=== PATIENT | male | born 1995 | race Two or more races ===

== ENCOUNTER 2017-06-29 18:28 | Inpatient (IN) | payer OTHER ==
[~2017-06-29] VITALS: Ht 167.6 cm; Wt 110.5 kg
[2017-06-29] VITALS (7 sets, daily range): BP systolic 143–176; BP diastolic 94–106; PULSE 81–104; RESP 18–20; TEMP 97.5–98.3; O2SAT 96–98
[2017-06-29] MEDS ORDERED: MELO7.5T4 PO (19:08)
[2017-06-29] MEDS ORDERED: SODIUM CHLOR 0.9% 1000 ML INJ 1,000 ML IV ONE (19:27)
--- NOTE | 2017-06-29 19:30 | PD ---
HPI Chief Complaint: General Weakness Time Seen by Provider: 19:27 Travel History International Travel<30 days: No Contact w/Intl Traveler<30days: No Traveled to known affect area: No History of Present Illness HPI 21-year-old male presents to the emergency department by private transportation the care of family for evaluation of soreness and pain with range of motion of the right upper extremity developing to the left upper extremity concerning for symptoms in the past that he has experienced when diagnosed with rhabdomyolysis. Patient states he performed an aggressive physical work out with his upper body and arms 2 days ago and started noticing soreness yesterday and today when attempting to bend his arm at the elbow just to feed himself started noticing some increased tightness in the upper extremity affecting the right arm. Patient states the days progressed is now noticing symptoms in the left arm. No chest pain or soreness across the chest and only mild soreness to the abdomen where he did an abdominal workout as well. Patient states he skipped his leg workout has had no symptoms to the lower extremities. Patient denies any other history. Patient denies history of hypertension dyslipidemia cardiac disease asthma diabetes or other musculoskeletal issues. Patient did take a dose of acetaminophen and tried to drink some water today. Patient has noted some mild concentration of his urine but has not been aidan colored like it was in the past when he had the diagnosis of rhabdomyolysis requiring hospitalization. Patient moves the area in the past 3 months and does not have a local physician. Patient received reports that he was followed annually by primary care prior to moving to the area. No tobacco use no alcohol use. Patient rates his right arm pain 6/10 in intensity in his left arm pain for over 10 in intensity. [facility] Past Medical History Narrative Medical Rhabdomyolysis; no tobacco use; nursing notes reviewed Medical other: Yes (RHABDOMYLOSIS, IBS, ECZEMA) Tetanus Vaccination: < 5 Years Influenza Vaccination: Yes Past Surgical History Surgical History: No Previous Surgery Social History Alcohol Use: No Tobacco Use: No Substance Use: No Allergies-Medications (Allergen,Severity, Reaction): Coded Allergies: No Known Allergies (Unverified , 06/29/17) Reported Meds & Prescriptions Reported Meds & Active Scripts Active Reported Meloxicam 7.5 Mg Tab 7.5 Mg PO DAILY Review of Systems Except as stated in HPI: all other systems reviewed are Neg Physical Exam Narrative GENERAL: Well-developed well-nourished male in no acute distress no respiratory distress SKIN: Warm and dry. HEAD: Normocephalic. EYES: No scleral icterus. No injection or drainage. NECK: Supple, trachea midline. No JVD or lymphadenopathy. CARDIOVASCULAR: Mild increased Regular rate and rhythm without murmurs, gallops , or rubs. RESPIRATORY: Breath sounds equal bilaterally. No accessory muscle use. GASTROINTESTINAL: Abdomen soft, non-tender, nondistended. MUSCULOSKELETAL: No cyanosis, or edema. Patient demonstrates decreased range of motion of the right > left upper extremity with flexion at the elbow although intact extension pronation supination intact wrist extension intact. Patient is otherwise neurovascular tendon intact. Upper arm and forearm musculature muscle belly soft nontender without swollen. Capillary refill brisk and less than 2 seconds per digit and radial and ulnar pulses 2+ to palpation. Bilateral lower extremities neurovascular tendon intact. BACK: Nontender without obvious deformity. No CVA tenderness. Data Data Last Documented VS Vital Signs Date Time Temp Pulse Resp B/P Pulse Ox O2 Delivery O2 Flow Rate FiO2 06/29/17 19:46 18 97 Room Air 06/29/17 19:08 98.3 103 162/100 Orders Electrocardiogram (06/29/17 19:27) Complete Blood Count With Diff (06/29/17 19:27) Comprehensive Metabolic Panel (06/29/17 19:27) Magnesium (Mg) (06/29/17 19:27) Ckmb (Isoenzyme) Profile (06/29/17 19:27) Troponin I (06/29/17 19:27) Urinalysis - C+S If Indicated (06/29/17 19:27) Chest, Single Ap (06/29/17 19:27) Ecg Monitoring (06/29/17 19:27) Iv Access Insert/Monitor (06/29/17 19:27) Oximetry (06/29/17 19:27) Sodium Chlor 0.9% 1000 Ml Inj (Ns 1000 M (06/29/17 19:27) CKMB (06/29/17 19:30) CKMB% (06/29/17 19:30) Admit To Inpatient (06/29/17 ) Vital Signs (Adult) Q4H (06/29/17 20:49) Activity Oob Ad Maggy (06/29/17 20:49) [employer] / Telemetry .CONTINUOUS (06/29/17 20:49) Diet Heart Healthy (06/30/17 Breakfast) Sodium Chloride 0.9% Flush (Ns Flush) (06/29/17 21:00) Sodium Chloride 0.9% Flush (Ns Flush) (06/29/17 21:00) Basic Metabolic Panel (Bmp) (06/30/17 06:00) Creatine Kinase (Cpk) (06/30/17 06:00) Naloxone Inj (Narcan Inj) (06/29/17 21:00) Inpatient Certification (06/29/17 ) Admit Order (Ed Use Only) (06/29/17 ) ^ Saline Lock (06/29/17 20:50) Resp Oxygen Dave C Titrat 1-4 L (06/29/17 ) Notify Dr: Other (06/29/17 20:50) Labs Laboratory Tests Test 06/29/17 06/29/17 19:30 19:35 White Blood Count 10.3 TH/MM3 Red Blood Count 5.21 MIL/MM3 Hemoglobin 15.2 GM/DL Hematocrit 44.5 % Mean Corpuscular Volume 85.3 FL Mean Corpuscular Hemoglobin 29.2 PG Mean Corpuscular Hemoglobin 34.2 % Concent Red Cell Distribution Width 12.3 % Platelet Count 314 TH/MM3 Mean Platelet Volume 7.9 FL Neutrophils (%) (Auto) 58.7 % Lymphocytes (%) (Auto) 31.2 % Monocytes (%) (Auto) 5.6 % Eosinophils (%) (Auto) 3.9 % Basophils (%) (Auto) 0.6 % Neutrophils # (Auto) 6.0 TH/MM3 Lymphocytes # (Auto) 3.2 TH/MM3 Monocytes # (Auto) 0.6 TH/MM3 Eosinophils # (Auto) 0.4 TH/MM3 Basophils # (Auto) 0.1 TH/MM3 CBC Comment DIFF FINAL Differential Comment Sodium Level 141 MEQ/L Potassium Level 4.4 MEQ/L Chloride Level 107 MEQ/L Carbon Dioxide Level 26.9 MEQ/L Anion Gap 7 MEQ/L Blood Urea Nitrogen 12 MG/DL Creatinine 1.00 MG/DL Estimat Glomerular Filtration 94 ML/MIN Rate Random Glucose 102 MG/DL Calcium Level 9.3 MG/DL Magnesium Level 2.2 MG/DL Total Bilirubin 0.6 MG/DL Aspartate Amino Transf 148 U/L (AST/SGOT) Alanine Aminotransferase 115 U/L (ALT/SGPT) Alkaline Phosphatase 94 U/L Total Creatine Kinase 7259 U/L Creatine Kinase MB 1.6 NG/ML Creatine Kinase MB % 0.0 % Troponin I LESS THAN 0.02 NG/ML Total Protein 8.4 GM/DL Albumin 4.4 GM/DL Urine Color YELLOW Urine Turbidity CLEAR Urine pH 6.0 Urine Specific [place] 1.027 Urine Protein TRACE mg/dL Urine Glucose (UA) 250 mg/dL Urine Ketones NEG mg/dL Urine Occult Blood NEG Urine Nitrite NEG Urine Bilirubin NEG Urine Leukocyte Esterase NEG Urine Squamous Epithelial 0-5 /hpf Cells Microscopic Urinalysis Comment CULT NOT INDICATED MDM Medical Decision Making Medical Screen Exam Complete: Yes Emergency Medical Condition: Yes Medical Record Reviewed: Yes Interpretation(s) EKG normal sinus rhythm rate [address] elevation or injury pattern change noted Troponin I less than 0.02 CK 7259; MB 1.6; MB percent 0.0% Last Impressions Chest X-Ray 06/29/171926 Signed Impressions: Service Date/Time: Thursday, June 29, 2017 19:44 - CONCLUSION: The lungs are clear. Mike Hernandez MD CBC & BMP Diagram 06/29/17 19:30 Vital Signs Date Time Temp Pulse Resp B/P Pulse Ox O2 Delivery O2 Flow Rate FiO2 06/29/17 19:46 18 97 Room Air 06/29/17 19:08 98.3 103 18 162/100 98 Room Air 06/29/17 19:08 103 18 98 Room Air 06/29/17 18:55 98.3 104 20 176/106 98 Differential Diagnosis Musculoskeletal pain; rhabdomyolysis; compartment syndrome; electrolyte disturbance, viral syndrome Narrative Course Patient was on monitoring and evaluation advisor IV access obtained specimens collected and sent for resulting EKG ordered reveals no acute ST elevation or injury pattern change , sinus rhythm rate of 90. CBC is automated differential values in normal range Patient feeling improved after IV fluids and given IV fluid bolus renal function within normal range urinalysis no red blood cells no gross blood; CK markedly elevated at 7259 with normal MB and MB percent Patient's case discussed with on-call medicine for admission for rhabdomyolysis Sepsis Criteria SIRS Criteria (2 or more): Heart rate over 90 Physician Communication Physician Communication Case discussed with on-call [facility] MD Dr Babcock for admission Diagnosis Primary Impression: Rhabdomyolysis Qualified Code: M62.82 - Non-traumatic rhabdomyolysis Admitting Information Admitting Physician Requests: Admit Berta Case MD Jun 29, 2017 19:29
[2017-06-29 19:39] LABS: BASOPHIL # 0.1 TH/MM3 (0-0.2); BASOPHIL % 0.6 % (0.0-2.0); EOSINOPHIL # 0.4 TH/MM3 (0-0.4); EOSINOPHIL % 3.9 % (0.0-4.0); HEMATOCRIT 44.5 % (39.0-51.0); HEMO FLAGS DIFF FINAL; LYMPH % 31.2 % (9.0-44.0); LYMPHOCYTE # 3.2 TH/MM3 (1.0-4.8); MEAN CELL VOLUME 85.3 FL (80.0-100.0); MEAN CORPUSCULAR HEMOGLOBIN 29.2 PG (27.0-34.0); MEAN CORPUSCULAR HGB CONC 34.2 % (32.0-36.0); MONO % 5.6 % (0.0-8.0); NEUT % 58.7 % (16.0-70.0); PLATELET COUNT 314 TH/MM3 (150-450); RED BLOOD COUNT 5.21 MIL/MM3 (4.50-5.90); RED CELL DISTRIBUTION WIDTH 12.3 % (11.6-17.2); WHITE BLOOD COUNT 10.3 TH/MM3 (4.0-11.0)
[2017-06-29 19:46] LABS: CHLORIDE 107 MEQ/L (98-107); POTASSIUM 4.4 MEQ/L (3.5-5.1); SODIUM (NA) 141 MEQ/L (136-145)
[2017-06-29 19:52] LABS: BLOOD, URINE NEG (NEG); GLUCOSE,URINE 250 mg/dL (NEG); KETONE, URINE NEG (NEG); NITRITE,URINE NEG (NEG)
[2017-06-29 19:53] LABS: ANION GAP 7 MEQ/L (5-15); BICARBONATE 26.9 MEQ/L (21.0-32.0); BLOOD UREA NITROGEN 12 MG/DL (7-18); MAGNESIUM 2.2 MG/DL (1.5-2.5)
[2017-06-29 19:55] LABS: ALT (GPT) 115 U/L (12-78); AST (GOT) 148 U/L (15-37)
[2017-06-29 19:56] LABS: GLOMERULAR FILTRATION RATE 94 ML/MIN (>89)
[2017-06-29 19:57] LABS: TOTAL BILIRUBIN ADULT 0.6 MG/DL (0.2-1.0)
[2017-06-29 19:58] LABS: ALKALINE PHOSPHATASE 94 U/L (45-117)
[2017-06-29 19:59] LABS: COMMENT (UR) CULT NOT INDICATED; CULTURE IF INDICATED CULT NOT INDICATED; SQUAMOUS EPITHELIAL CELL URINE 0-5 /hpf (0-5); URINE COLOR YELLOW (YELLW/STRAW)
--- NOTE | 2017-06-29 20:17 | RADRPT ---
EXAM DATE/TIME: 06/29/2017 19:44 [place] COMPARISON: No previous studies available for comparison. INDICATIONS : Chest pain. MEDICAL HISTORY : None. SURGICAL HISTORY : None. ENCOUNTER: Initial ACUITY: 1 day PAIN SCORE: 4/10 LOCATION: Bilateral chest FINDINGS: A single view of the chest demonstrates the lungs to be symmetrically aerated without evidence of mas s, infiltrate or effusion. The cardiomediastinal contours are unremarkable. Osseous structures are intact. CONCLUSION: The lungs are clear. Mike Hernandez MD on June 29, 2017 at 20:14 Board Certified Radiologist. This report was verified electronically.
[2017-06-29 20:22] LABS: CREATINE KINASE 7259 U/L (39-308)
[2017-06-29 20:34] LABS: CKMB 1.6 NG/ML (0.5-3.6)
[2017-06-29] MEDS ORDERED: SODIUM CHLORIDE 0.9% FLUSH 10 ML FLUSH IVF PRN (21:00)
[2017-06-29] MEDS ORDERED: SODIUM CHLORIDE 0.9% FLUSH 10 ML FLUSH IV FLUSH PRN (21:00)
[2017-06-29] MEDS: SODIUM CHLORIDE 0.9% FLUSH 10 ML FLUSH IV FLUSH SCH (21:00)
[2017-06-29] MEDS ORDERED: NALOXONE HCL 0.4 MG/ML AMP IV PRN (21:00)
[2017-06-29] MEDS ORDERED: SODIUM CHLORIDE 0.9% FLUSH 10 ML FLUSH IV FLUSH SCH (21:00)
[2017-06-30] VITALS (7 sets, daily range): BP systolic 133–160; BP diastolic 77–100; PULSE 65–98; RESP 19–20; TEMP 96–98.6; O2SAT 97–98
[2017-06-30] MEDS ORDERED: IBUPROFEN 600 MG TAB PO ONE (00:30)
[2017-06-30 06:12] LABS: BICARBONATE 23.9 MEQ/L (21.0-32.0); POTASSIUM 3.6 MEQ/L (3.5-5.1)
[2017-06-30] MEDS: SODIUM CHLOR 0.9% 1000 ML INJ 1,000 ML IV SCH ×4 (06:44→21:28)
[2017-06-30 07:02] LABS: CKMB 1.8 NG/ML (0.5-3.6)
[2017-06-30] MEDS: SODIUM CHLORIDE 0.9% FLUSH 10 ML FLUSH IV FLUSH SCH ×2 (09:00→21:00)
--- NOTE | 2017-06-30 10:38 | HHI.HP ---
[facility] [place] No Primary Care Physician Admission Diagnosis rhabdomyolysis Diagnoses: Travel History International Travel<30 Days: No Contact w/Intl Traveler <30 Da: No Traveled to Known Affected Are: No History of Present Illness 21-year-old male with past medical history of history of rhabdomyolysis presents to the emergency room with pain in his upper extremities bilaterally. He states on Tuesday he started working out more than his usual, was doing some chest presses and biceps curls using a barbell lifting about 50-75 pounds. He states that he did 3 sets: 20, 16, 12. The next day he started having soreness in his right arm went to work and on Tuesday he started experiencing worsening pain on the right arm and weakness which progressed to the left arm. He had trouble lifting his spoon to eat. He states he had similar symptoms 2 years ago where he was diagnosed with rhabdomyolysis secondary to extreme workout. He got concerned and decided to come to the emergency room to be evaluated. pain was 6/10 on admission and now down to 5/10 He also noted that his urine was dark. He states that last time he was in the hospital for the [facility], he stayed about 7 days. He drinks about 1 gallon/ day he denies any CP/SOB/N/V/abdominal pain. Otherwise has no other concerns Review of Systems Except as stated in HPI: all other systems reviewed are Neg Past Family Social History Past Medical History previous hx of rhabdomyolysis Past Surgical History none Reported Medications Reported Meds & Active Scripts Active Reported Meloxicam 7.5 Mg Tab 7.5 Mg PO DAILY Allergies: Coded Allergies: No Known Allergies (Unverified , 06/29/17) Family History Mother and father are healthy. Social History Doesn't smoke. He has tried cigarettes in the past socially. Denies any alcohol use or illegal drug use. Physical Exam Vital Signs Vital Signs Date Time Temp Pulse Resp B/P Pulse Ox O2 Delivery O2 Flow Rate FiO2 06/30/17 09:04 96.0 66 19 137/80 98 06/30/17 00:04 97 21 06/30/17 00:00 97.5 94 20 156/98 97 06/29/17 23:00 86 06/29/17 22:15 97.5 88 20 143/104 96 06/29/17 21:07 81 18 164/94 97 Room Air 06/29/17 19:46 18 97 Room Air 06/29/17 19:08 98.3 103 18 162/100 98 Room Air 06/29/17 19:08 103 18 98 Room Air 06/29/17 18:55 98.3 104 20 176/106 98 Physical Exam GENERAL: This is a well-nourished, well-developed patient, appears tired SKIN: No rashes, ecchymoses or lesions. Cool and dry. HEAD: Atraumatic. Normocephalic. EYES: Pupils equal round and reactive. Extraocular motions intact. No scleral icterus. No injection or drainage. ENT: Nose without drainage. Throat without erythema, tonsillar hypertrophy or exudate. Uvula midline. Airway patent. NECK: Trachea midline. Supple, nontender, no meningeal signs. CARDIOVASCULAR: Regular rate and rhythm without murmurs RESPIRATORY: Clear to auscultation. Breath sounds equal bilaterally. No wheezes GASTROINTESTINAL: Abdomen soft, non-tender, nondistended. No masses. No guarding. MUSCULOSKELETAL: Extremities without edema. Difficulty lifting his upper extremities against gravity. He is able to squeeze my hands, able to resist. He is very tender with movement of the upper extremities. No pain with palpation. No difficulty moving the lower extremities. NEUROLOGICAL: Awake and alert. Cranial nerves II through XII intact. Motor and sensory grossly within normal limits. Normal speech. Speech. Laboratory Laboratory Tests Test 06/29/17 06/29/17 06/30/17 19:30 19:35 05:30 White Blood Count 10.3 Red Blood Count 5.21 Hemoglobin 15.2 Hematocrit 44.5 Mean Corpuscular Volume 85.3 Mean Corpuscular Hemoglobin 29.2 Mean Corpuscular Hemoglobin 34.2 Concent Red Cell Distribution Width 12.3 Platelet Count 314 Mean Platelet Volume 7.9 Neutrophils (%) (Auto) 58.7 Lymphocytes (%) (Auto) 31.2 Monocytes (%) (Auto) 5.6 Eosinophils (%) (Auto) 3.9 Basophils (%) (Auto) 0.6 Neutrophils # (Auto) 6.0 Lymphocytes # (Auto) 3.2 Monocytes # (Auto) 0.6 Eosinophils # (Auto) 0.4 Basophils # (Auto) 0.1 CBC Comment DIFF FINAL Differential Comment Sodium Level 141 143 Potassium Level 4.4 3.6 Chloride Level 107 111 Carbon Dioxide Level 26.9 23.9 Anion Gap 7 8 Blood Urea Nitrogen 12 15 Creatinine 1.00 0.86 Estimat Glomerular Filtration 94 112 Rate Random Glucose 102 136 Calcium Level 9.3 8.7 Magnesium Level 2.2 Total Bilirubin 0.6 Aspartate Amino Transf 148 (AST/SGOT) Alanine Aminotransferase 115 (ALT/SGPT) Alkaline Phosphatase 94 Total Creatine Kinase 7259 9351 Creatine Kinase MB 1.6 1.8 Creatine Kinase MB % 0.0 0.0 Troponin I LESS THAN 0.02 Total Protein 8.4 Albumin 4.4 Urine Color YELLOW Urine Turbidity CLEAR Urine pH 6.0 Urine Specific [place] 1.027 Urine Protein TRACE Urine Glucose (UA) 250 Urine Ketones NEG Urine Occult Blood NEG Urine Nitrite NEG Urine Bilirubin NEG Urine Leukocyte Esterase NEG Urine Squamous Epithelial 0-5 Cells Microscopic Urinalysis Comment CULT NOT INDICATED Result Diagram: 06/29/17192906/30/17 0530 Imaging Last Impressions Chest X-Ray 06/29/171926 Signed Impressions: Service Date/Time: Thursday, June 29, 2017 19:44 - CONCLUSION: The lungs are clear. Mike Hernandez MD Assessment and Plan Assessment and Plan Rhabdomyolysis: Currently does not have any kidney injury. I will increase normal saline to 250 ML's per hour. Patient has been encouraged to drink plenty of fluids. Monitor kidney function very closely as patient is at risk of going into kidney failure. Monitor urine output. Patient has had a history of this in the past. He has been counseled on being more cautious and do more progressive workouts in the future. Patient denies taking any health supplements. Total CK today is 9351. Repeat in the morning Encourage ambulation. We'll get occupational therapy to evaluate patient and make recommendations as patient has limited movement in his upper extremities. DVT proph: ambulation Code Status full Discussed Condition With patient Orin South MD Jun 30, 2017 10:38
[2017-06-30] MEDS ORDERED: ACETAMINOPHEN/HYDROcodone 325 MG/7.5 MG TAB PO PRN (11:30)
[2017-06-30] MEDS: ACETAMINOPHEN/HYDROcodone 325 MG/5 MG TAB PO PRN ×3 (11:45→21:32)
--- NOTE | 2017-06-30 14:43 | EKG ---
Date Performed: 06/29/2017 Time Performed: 19:39:46 PTAGE: 21 years EKG: Sinus rhythm MINIMAL VOLTAGE CRITERIA FOR LVH, CONSIDER NORMAL VARIANT BORDERLINE ECG NO PREVIOUS TRACING DOCTOR: Eileen Giraldo Interpretating Date/Time 06/30/2017 14:42:14
[2017-07-01] VITALS (7 sets, daily range): BP systolic 115–151; BP diastolic 71–101; PULSE 56–100; RESP 18–20; TEMP 96–98.2; O2SAT 96–99
[2017-07-01] MEDS: SODIUM CHLOR 0.9% 1000 ML INJ 1,000 ML IV SCH ×7 (00:23→22:49)
[2017-07-01] MEDS: ACETAMINOPHEN/HYDROcodone 325 MG/5 MG TAB PO PRN ×2 (03:42→13:56)
[2017-07-01] MEDS: SODIUM CHLORIDE 0.9% FLUSH 10 ML FLUSH IV FLUSH SCH ×2 (09:00→21:00)
[2017-07-01 09:13] LABS: POTASSIUM 4.3 MEQ/L (3.5-5.1)
[2017-07-01 09:20] LABS: BICARBONATE 27.6 MEQ/L (21.0-32.0)
[2017-07-01 10:58] LABS: CKMB 3.6 NG/ML (0.5-3.6)
--- NOTE | 2017-07-01 12:07 | HHI.PR ---
Subjective Remarks Written by Troy Morgan, acting as scribe for Dr. South on 07/01/17 at 12: 03. Patient has any new complaints. Does have increased range of motion of his upper extremities. pain is improved. able to nut picker his utensils and able to eat. No CP/SOB/N/V Objective Vitals Vital Signs Date Time Temp Pulse Resp B/P Pulse Ox O2 Delivery O2 Flow Rate FiO2 07/01/17 09:19 96.0 56 19 122/71 96 07/01/17 04:00 97.6 72 20 122/83 98 07/01/17 00:00 98.1 80 20 115/73 97 06/30/17 21:00 98 06/30/17 20:00 97.9 85 20 149/100 97 06/30/17 18:24 16 06/30/17 16:52 96.4 65 19 133/77 98 06/30/17 13:22 98.6 81 19 160/100 98 I/O 06/30/17 06/30/17 06/30/17 07/01/17 07/01/17 07/01/17 06:59 14:59 22:59 06:59 14:59 22:59 Intake Total 1000 ml 750 ml 1000 ml 4980 ml Output Total 200 ml 1200 ml 500 ml 2900 ml Balance 800 ml -450 ml 500 ml 2080 ml Intake Oral 750 ml 1000 ml 480 ml IV Total 1000 ml 4500 ml Output Urine Total 200 ml 1200 ml 500 ml 2900 ml # Voids 1 12 Result Diagram: 06/29/17192907/01/17 0830 Imaging Last Impressions Chest X-Ray 06/29/171926 Signed Impressions: Service Date/Time: Thursday, June 29, 2017 19:44 - CONCLUSION: The lungs are clear. Mike Hernandez MD Objective Remarks GENERAL: Well-developed, well-nourished, alert and orientated HEENT: Head is normocephalic without any lesions or masses noted. Facial features are symmetric. Eyes: Extraocular muscles are intact. Conjunctivae were clear. NECK: Trachea midline no deviation. CARDIAC: Regular rhythm, regular rate. No murmurs LUNGS: Clear to auscultation bilaterally. No wheeze, rhonchi or rales. No use of accessory muscles on inspiration or expiration. ABDOMEN: Soft, nontender. Nondistended. Bowel sounds heard in all 4 quadrants. No organomegaly or masses. Negative rebound, negative guarding EXTREMITIES: No edema, moves his upper extremities left more than right NEUROLOGY: Mood and affect appear appropriate. Cranial nerves II through XII grossly intact. Moving all extremities, speech is clear Urinary Catheter: No Vascular Central Line Catheter: No A/P Assessment and Plan Rhabdomyolysis: Continues not to have any kidney injury. Continue normal saline to 250 ML's per hour. Patient has been encouraged to drink plenty of fluids. Monitor kidney function very closely as patient is at risk of going into kidney failure. Monitor urine output. Patient has had a history of this in the past. He has been counseled on being more cautious and do more progressive workouts in the future. Patient denies taking any health [place] [address]. Continue to monitor Encourage ambulation. Occupational therapy to evaluate patient and make recommendations as patient has limited movement in his upper extremities. DVT proph: Low risk, early ambulation This note was transcribed by heena Morgan. I, Dr. Orin South personally performed the history, physical exam, and medical decision making; and confirmed the accuracy of the information in the transcribed note. Authenticated by Dr. Orin South on 07/01/17 at 12:03. Discharge Planning Discharge planning once regular rhabdomyolysis improved Troy Morgan Jul 01, 2017 12:06 Orin South MD Jul 01, 2017 17:18
[2017-07-02] VITALS: BP 154/99; PULSE 81; RESP 20; TEMP 97.9; O2SAT 98
[2017-07-02] MEDS: SODIUM CHLOR 0.9% 1000 ML INJ 1,000 ML IV SCH ×5 (02:54→21:38)
[2017-07-02 04:00] VITALS: BP 115/77; PULSE 79; RESP 20; TEMP 97.1; O2SAT 98
[2017-07-02 07:39] LABS: CREATINE KINASE GREATER THAN 14000 U/L (39-308)
[2017-07-02 07:56] LABS: CKMB 2.3 NG/ML (0.5-3.6)
[2017-07-02 08:00] VITALS: BP 135/95; PULSE 68; RESP 16; TEMP 97; O2SAT 97
[2017-07-02] MEDS: SODIUM CHLORIDE 0.9% FLUSH 10 ML FLUSH IV FLUSH SCH ×2 (09:00→21:00)
--- NOTE | 2017-07-02 10:22 | HHI.PR ---
Subjective Remarks Written by Troy Morgan, acting as scribe for Dr. South on 07/02/17 at 10: 19. Patient is moving better. Clinically he feels that he is improving nicely. Patient denies any new complaints today. He is drinking plenty of fluids. Objective Vitals Vital Signs Date Time Temp Pulse Resp B/P Pulse Ox O2 Delivery O2 Flow Rate FiO2 07/02/17 08:00 97.0 68 16 135/95 97 07/02/17 04:00 97.1 79 20 115/77 98 07/02/17 00:00 97.9 81 20 154/99 98 07/01/17 20:15 100 07/01/17 20:00 98.2 90 20 147/101 97 07/01/17 17:05 97.8 84 18 146/84 99 07/01/17 14:58 16 07/01/17 12:39 97.7 76 19 151/96 98 I/O 07/01/17 07/01/17 07/01/17 07/02/17 07/02/17 07/02/17 07:00 15:00 23:00 07:00 15:00 23:00 Intake Total 4980 ml 1250 ml 720 ml Output Total 2900 ml 1950 ml Balance 2080 ml 1250 ml -1230 ml Intake Oral 480 ml 1250 ml 720 ml IV Total 4500 ml Output Urine Total 2900 ml 1950 ml # Voids 4 # Bowel Movements 1 Result Diagram: 06/29/17 19307/01/17 0830 Imaging Last Impressions Chest X-Ray 06/29/171926 Signed Impressions: Service Date/Time: Thursday, June 29, 2017 19:44 - CONCLUSION: The lungs are clear. Mike Hernandez MD Objective Remarks GENERAL: Well-developed, well-nourished, laying in bed HEENT: Head is normocephalic Eyes: Extraocular muscles are intact. NECK: Trachea. No JVD, CARDIAC: Regular rhythm, regular rate. No murmurs LUNGS: Clear to auscultation bilaterally. No wheeze ABDOMEN: Soft, nontender. Nondistended. Bowel sounds heard in all 4 quadrants. EXTREMITIES: No edema NEUROLOGY: Mood and affect appear appropriate. ROM in upper extremities much improved, speech is clear Vascular Central Line Catheter: No A/P Assessment and Plan Rhabdomyolysis: Continues not to have any kidney injury. Continue normal saline to 250 ML's per hour. Patient has been encouraged to drink plenty of fluids. Monitor kidney function very closely as patient is at risk of going into kidney failure. Monitor urine output. Patient has had a history of this in the past. He has been counseled on being more cautious and do more progressive workouts in the future. Patient denies taking any health supplements. Total CK today is greater than 14,000. Continue to monitor Encourage ambulation. Occupational therapy following with the patient and making recommendations as patient has limited movement in his upper extremities. DVT proph: Low risk, early ambulation This note was transcribed by heena Morgan. I, Dr. Orin South personally performed the history, physical exam, and medical decision making; and confirmed the accuracy of the information in the transcribed note. Authenticated by Dr. Orin South on 07/02/17 at 1019. Discharge Planning Discharge planning once regular rhabdomyolysis improved Troy Morgan Jul 02, 2017 10:22 Orin South MD Jul 02, 2017 16:16
[2017-07-02 12:00] VITALS: BP 137/90; PULSE 70; RESP 16; TEMP 98.4; O2SAT 100
[2017-07-02 16:00] VITALS: BP 150/92; PULSE 72; RESP 18; TEMP 98.8; O2SAT 99
[2017-07-02 20:00] VITALS: BP 144/101; PULSE 92; RESP 20; TEMP 99.5; O2SAT 97
[2017-07-03] VITALS: BP 144/88; PULSE 66; RESP 20; TEMP 97.8; O2SAT 97
[2017-07-03] MEDS: SODIUM CHLOR 0.9% 1000 ML INJ 1,000 ML IV SCH ×5 (02:10→23:09)
[2017-07-03 07:27] LABS: CHLORIDE 109 MEQ/L (98-107); POTASSIUM 3.9 MEQ/L (3.5-5.1); SODIUM (NA) 142 MEQ/L (136-145)
[2017-07-03 07:35] LABS: ANION GAP 6 MEQ/L (5-15); BICARBONATE 26.6 MEQ/L (21.0-32.0); BLOOD UREA NITROGEN 8 MG/DL (7-18)
[2017-07-03 07:39] LABS: GLOMERULAR FILTRATION RATE 117 ML/MIN (>89)
[2017-07-03 08:06] LABS: CREATINE KINASE GREATER THAN 14000 U/L (39-308)
[2017-07-03 08:21] LABS: CKMB 1.9 NG/ML (0.5-3.6)
[2017-07-03] MEDS: SODIUM CHLORIDE 0.9% FLUSH 10 ML FLUSH IV FLUSH SCH ×2 (08:49→21:00)
--- NOTE | 2017-07-03 10:58 | HHI.PR ---
Subjective Remarks Written by Troy Morgan, acting as scribe for Dr. South on 07/03/17 at 10: 56. Pt feels good. States pain has resolved. able to move his arms w no difficulty Objective Vitals Vital Signs Date Time Temp Pulse Resp B/P Pulse Ox O2 Delivery O2 Flow Rate FiO2 07/03/17 00:00 97.8 66 20 144/88 97 07/02/17 20:00 99.5 92 20 144/101 97 07/02/17 16:00 98.8 72 18 150/92 99 07/02/17 12:00 98.4 70 16 137/90 100 I/O 07/02/17 07/02/17 07/02/17 07/03/17 07/03/17 07/03/17 07:00 15:00 23:00 07:00 15:00 23:00 Intake Total 720 ml 3731 ml 3160 ml 1866 ml Output Total 1950 ml 1150 ml Balance -1230 ml 3731 ml 2010 ml 1866 ml Intake Oral 720 ml 960 ml IV Total 3731 ml 2200 ml 1866 ml Output Urine Total 1950 ml 1150 ml # Voids 6 4 # Bowel Movements 0 Result Diagram: 06/29/17192907/03/17 0705 Imaging Last Impressions Chest X-Ray 06/29/171926 Signed Impressions: Service Date/Time: Thursday, June 29, 2017 19:44 - CONCLUSION: The lungs are clear. Mike Hernandez MD Objective Remarks GENERAL: Well-developed, well-nourished, in no acute distress. alert and orientated Eyes: Extraocular muscles are intact. Conjunctivae were clear. NECK: Trachea midline no deviation. No JVD, CARDIAC: Regular rhythm, regular rate. No murmurs LUNGS: Clear to auscultation bilaterally. No wheeze ABDOMEN: Soft, nontender. Nondistended. Bowel sounds heard in all 4 quadrants EXTREMITIES: No edema, moving all extremities well. NEUROLOGY: Mood and affect appear appropriate. speech is clear Urinary Catheter: No Vascular Central Line Catheter: No A/P Assessment and Plan Rhabdomyolysis: Continues not to have any kidney injury. Continue normal saline to 250 ML's per hour. Patient has been encouraged to drink plenty of fluids. Patient has had a history of this in the past. He has been counseled on being more cautious and do more progressive workouts in the future. Patient denies taking any health supplements. Total CK today continues to be greater than 14,000. Continue to monitor Encourage ambulation. Occupational therapy evaluated and pt will not need outpatient OT DVT proph: Low risk, early ambulation This note was transcribed by heena Morgan . I, Dr. Orin South personally performed the history, physical exam, and medical decision making; and confirmed the accuracy of the information in the transcribed note. Authenticated by Dr. Orin South on 07/03/17 at 10:56 Discharge Planning Discharge planning once rhabdomyolysis improved Troy Morgan Jul 03, 2017 10:58 Orin South MD Jul 03, 2017 14:30
[2017-07-03 12:00] VITALS: BP 135/84; PULSE 75; RESP 20; TEMP 97.6; O2SAT 100
[2017-07-03 16:00] VITALS: BP 156/89; PULSE 101; RESP 20; TEMP 99.4; O2SAT 99
[2017-07-03 20:00] VITALS: BP 154/95; PULSE 90; RESP 18; TEMP 98.4; O2SAT 96
[2017-07-04] VITALS: BP 151/94; PULSE 92; RESP 20; TEMP 97.1; O2SAT 98
[2017-07-04] MEDS: SODIUM CHLOR 0.9% 1000 ML INJ 1,000 ML IV SCH ×4 (03:14→08:24)
[2017-07-04 04:00] VITALS: BP 136/64; PULSE 88; RESP 18; TEMP 95.9; O2SAT 96
[2017-07-04] MEDS: SODIUM CHLORIDE 0.9% FLUSH 10 ML FLUSH IV FLUSH SCH (07:47)
[2017-07-04 08:40] LABS: POTASSIUM 3.7 MEQ/L (3.5-5.1)
[2017-07-04 08:45] LABS: BICARBONATE 26.4 MEQ/L (21.0-32.0)
[2017-07-04 09:09] VITALS: BP 158/105; PULSE 67; RESP 16; TEMP 97.4; O2SAT 99
--- NOTE | 2017-07-04 09:49 | HHI.DCPOC ---
Discharge Care Plan Diagnosis: (1) Rhabdomyolysis Goals to Promote Your Health * To prevent worsening of your condition and complications * To maintain your health at the optimal level Directions to Meet Your Goals Take your medications as prescribed Follow your dietary instruction Follow activity as directed Keep your appointments as scheduled Take your immunizations and boosters as scheduled If your symptoms worsen call your PCP, if no PCP go to Urgent Care Center or Emergency Room Smoking is Dangerous to Your Health. Avoid second hand smoke Call the 24-hour hour crisis hotline for domestic abuse at [facility] Jul 04, 2017 09:49
--- NOTE | 2017-07-04 09:53 | HHI.DS ---
Discharge Summary Admission Date Jun 29, 2017 at 20:51 Discharge Date: Jul 04, 2017 Admitting Diagnosis rhabdomyolysis (1) Rhabdomyolysis ICD Code: M62.82 Procedures None Brief History - From Admission 21-year-old male with past medical history of history of rhabdomyolysis presents to the emergency room with pain in his upper extremities bilaterally. He states on Tuesday he started working out more than his usual, was doing some chest presses and biceps curls using a barbell lifting about 50-75 pounds. He states that he did 3 sets: 20, 16, 12. The next day he started having soreness in his right arm went to work and on Tuesday he started experiencing worsening pain on the right arm and weakness which progressed to the left arm. He had trouble lifting his spoon to eat. He states he had similar symptoms 2 years ago where he was diagnosed with rhabdomyolysis secondary to extreme workout. He got concerned and decided to come to the emergency room to be evaluated. pain was 6/10 on admission and now down to 5/10 He also noted that his urine was dark. He states that last time he was in the hospital for the rhabdo, he stayed about 7 days. He drinks about 1 gallon/ day he denies any CP/SOB/N/V/abdominal pain. Otherwise has no other concerns CBC/BMP: 07/04/17 0755 Significant Findings Laboratory Tests Test 07/02/17 07/03/17 07/03/17 07/04/17 06:30 07:05 16:50 07:55 Total Creatine Kinase GREATER THAN GREATER THAN 05828 U/L 6940 U/L 38309 U/L 17616 U/L (39-308) (39-308) (39-308) (39-308) Chloride Level 109 MEQ/L (98-107) PE at Discharge GENERAL: Well-developed, well-nourished, in no acute distress. alert and orientated Eyes: Extraocular muscles are intact. Conjunctivae were clear. NECK: Trachea midline no deviation. No JVD, CARDIAC: Regular rhythm, regular rate. No murmurs LUNGS: Clear to auscultation bilaterally. No wheeze ABDOMEN: Soft, nontender. Nondistended. Bowel sounds heard in all 4 quadrants EXTREMITIES: No edema, moving all extremities well. NEUROLOGY: Mood and affect appear appropriate. speech is clear Hospital Course 21-year-old male who recently presented to hospital because of muscle soreness after working out at the gym. Patient found to have significant rhabdomyolysis. Patient recommended admission by the ER physician. Patient started on IV fluids and CPK was trended on a daily basis. They continue to rise for the first 4 days, then a plateaued and has significantly reduced in the last 24 hours. Patient's soreness in his arms continued to get better and had resolved yesterday. Patient was counseled extensively on oral intake of fluids, over exercising. Patient's renal functions were never affected during his stay in the hospital. Patient clinically stable this time. Will plan discharge accordingly. Patient was instructed follow-up with primary medical doctor one week. Pt Condition on Discharge: Stable Discharge Disposition: Discharge Home Discharge Time: <= 30 minutes Discharge Instructions DIET: Follow Instructions for: As Tolerated, No Restrictions Additional Diet Instructions: Drink plenty of water Activities you can perform: Regular-No Restrictions Activities to Avoid: Driving for 24 hrs Follow up Referrals: PCP Follow-up - 1 Week Discontinued Medications: Meloxicam (Meloxicam) 7.5 Mg Tab 7.5 MG PO DAILY Arthritis Pain Ref 0 TAB Additional Information Written by Troy Morgan, acting as scribe for Dr. Bowles on 07/04/17 at 09: 40. This note was transcribed by scribe Troy Morgan. I, Dr. Melvi Bowles personally performed the history, physical exam, and medical decision making; and confirmed the accuracy of the information in the transcribed note. Authenticated by Dr. Melvi Bowles on 07/04/17 at 13:36. Troy Morgan Jul 04, 2017 09:53 Melvi Bowles MD Jul 04, 2017 13:36
[2017-07-04 10:11] LABS: CKMB 1.2 NG/ML (0.5-3.6)
== END 2017-07-04 11:25 | disposition home or self-care (01) | DRG 558 ==
LOC: PHED 18:28 → PHEDA 20:51 → PH3A 21:45
PROVIDERS: ADMIT Family Medicine; ATTEND Family Medicine
DX: M62.82 Rhabdomyolysis (principal)
CPT/HCPCS: 71010; 80048; 80053; 81001; 82550; 82552; 83735; 84484; 85025; 93005; 96360; J7030